=== PATIENT | female | born 1935 | race Caucasian/White ===

== ENCOUNTER 2022-03-14 14:14 | Emergency (ER) | payer OTHER ==
[~2022-03-14] VITALS: Ht 165.1 cm; Wt 54.9 kg
[2022-03-14] MEDS ORDERED: IV NORMAL SALINE 500 ML BAG IV ONE (14:30)
[2022-03-14] MEDS ORDERED: IV NORMAL SALINE 1000 ML BAG IV ONE (14:30)
[2022-03-14] MEDS ORDERED: CEFTRIAXONE 1 G in IV DEXTROSE 5% 50 ML IV ONE (14:30)
[2022-03-14] MEDS ORDERED: VANCOMYCIN IV 1,000 MG in IV DEXTROSE 5% 250 ML IV ONE (14:30)
[2022-03-14] MEDS ORDERED: CEFTRIAXONE /D5W 50ML IVPB **ER PYXIS IV ONE (14:42)
[2022-03-14] MEDS ORDERED: VANCOMYCIN IV 200 ML ONE (14:42)
--- NOTE | 2022-03-14 15:00 | NUR ---
Perineal care rendered.
[2022-03-14 15:01] LABS: HEMATOCRIT 40.1 % (31.2-41.9); MEAN CORPUSCULAR HEMOGLOBIN 30.6 uug (24.7-32.8); MEAN CORPUSCULAR VOLUME 89.6 fL (75.5-95.3); PLATELET COUNT (AUTO) 258 K/uL (179-408)
[2022-03-14 15:09] LABS: *BILIRUBIN,URIN NEGATIVE (NEGATIVE); *BLOOD, URINE 1+ (NEGATIVE); *CLARITY,URINE SLIGHTLY CLOUDY (CLEAR); *COLOR,URINE YELLOW (YELLOW); *KETONES,URINE 2+ (NEGATIVE); LEUKOCYTE ESTERASE ,URINE 3+ (NEGATIVE); NITRITE, URINE POSITIVE (NEGATIVE); PH,URINE 7.5 (5.0-8.0); UGLUCOSE NEGATIVE (NEGATIVE)
[2022-03-14 15:20] LABS: ALANINE AMINOTRANSFERASE 8 U/L (14-59); ALKALINE PHOSPHATASE 78 U/L (50-136); ASPARTATE AMINOTRANSFERASE 14 U/L (15-37); BILIRUBIN,DIRECT 0.3 mg/dL (0.0-0.2); BILIRUBIN,TOTAL 0.8 mg/dL (0.2-1.0); CARBON DIOXIDE 24 mmol/L (21-32); CHLORIDE 92 mmol/L (98-107); CREATININE 0.6 mg/dL (0.6-1.3); GLUCOSE 90 mg/dL (74-106); UREA NITROGEN, BLOOD 12 mg/dL (7-18)
[2022-03-14 15:22] LABS: POTASSIUM 2.6 mmol/L (3.5-5.1)
--- NOTE | 2022-03-14 15:28 | NUR ---
Patient is resting comfortably on gurney, intermittently shouting incomprehensible sounds, moving all extremities. Comfort and safety measures maintained.
[2022-03-14] MEDS ORDERED: POTASSIUM CHLORIDE 40 MEQ in IV NS 1000 ML 1,000 ML IV STA (15:44)
--- NOTE | 2022-03-14 16:12 | NUR ---
Anisa barboza and Abigail stated second troponin will be drawn at 1640.
[2022-03-14 17:28] LABS: BACTERIA,URINE MODERATE /HPF (NONE SEEN); SQUAMOUS EPITHELIAL CELL,UR MANY /HPF (NONE SEEN); WBC,URINE TNTC /HPF (0-3)
[2022-03-14] MEDS ORDERED: OLANZAPINE 10 MG VIAL IM ONE (20:15)
--- NOTE | 2022-03-14 20:38 | NUR ---
pt to be transfered to [id number]. Report # . Dr. Gunn. [place] @[phone].
--- NOTE | 2022-03-14 22:09 | NUR ---
Report given to Xuan AKBAR of [facility].
--- NOTE | 2022-03-14 23:08 | NUR ---
[facility] here for transfer to [facility].
== END 2022-03-14 23:19 | disposition short-term general hospital (02) ==
LOC: ER 14:14
DX: R62.7 Adult failure to thrive (principal); N39.0 Urinary tract infection, site not specified; E87.6 Hypokalemia; E87.1 Hypo-osmolality and hyponatremia; J90 Pleural effusion, not elsewhere classified; J81.1 Chronic pulmonary edema; F03.90 Unspecified dementia, unspecified severity, without behavioral disturbance, psychotic disturbance, mood disturbance, and anxiety; Z20.822 Contact with and (suspected) exposure to COVID-19; I49.1 Atrial premature depolarization
CPT/HCPCS: 99291; 96365; 96366; 96367; 87426; 80076; 80048; 81001; 83880; 83735; 85025; 84145; 85730; 86850; 86900; 86901; 87040 ×2; 87186; 87086; 87077; 84484 ×2; 36415; 93005; 71045; 96368; 83605; J0696; J3370; J7040 ×3; A4663; J3480